=== PATIENT | male | born 1950 | race Caucasian/White ===

== ENCOUNTER 2022-10-20 09:31 | Inpatient (IN) ==
[2022-10-20] MEDS ORDERED: IOPAMIDOL 100 ML BOTTLE IV ONE (09:32)
[2022-10-20] MEDS ORDERED: ONDANSETRON 4 MG/2 ML VIAL IV ONE (09:57)
--- NOTE | 2022-10-20 10:06 | Emergency Department Note ---
HPI General Chief complaint: Abdominal Pain Stated complaint: Bloated Time Seen by Provider: 10/20/22 09:45 Source: patient Mode of arrival: wheelchair History of Present Illness HPI Narrative: Narrative: This 72-year-old male returns to the ED again with abdominal pain similar to what he had 2 days ago. He states he was on his way to water aerobics and started having left upper quadrant pain that increased in severity. He went ahead to water aerobics and had to leave the water as he was afraid he would throw up in the water. He states that the pain is gradually increasing it steady nothing is making it worse nothing is making it better he has had no vomiting he had a normal bowel movement today with no melena or hematochezia he states he has not passed gas in some time and he had no relief of his pain with the defecation. Reviewed case from 2 days ago when patient had nonspecific abdominal pain. Patient's also [id number] diabetic hypertensive and morbidly obese. Related Data Home Medications Medication Instructions Recorded Confirmed aspirin 81 mg tablet,delayed 81 mg PO QDAY 09/30/21 10/20/22 release (Adult Aspirin Regimen) famotidine 20 mg tablet 40 mg PO QDAY 09/30/21 10/20/22 losartan 50 mg tablet 50 mg PO QDAY 09/30/21 10/20/22 metformin 500 mg tablet 500 mg PO BID 09/30/21 10/20/22 polyethylene glycol 3350 17 17 g PO QDAY PRN Constipation 09/30/21 10/20/22 gram/dose oral powder simvastatin 20 mg tablet 20 mg PO QPM 09/30/21 10/20/22 Previous Rx's Medication Instructions Recorded fluticasone propionate 50 2 spray intranasal QDAY #16 grams 10/04/22 mcg/actuation nasal spray,suspension Allergies Allergy/AdvReac Type Severity Reaction Status Date / Time No Known Drug Allergies Allergy Verified 07/27/22 13:41 Review of Systems ROS ROS Narrative: Narrative: All systems ED: reviewed and negative except as stated. 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 (Acute) Morbid (severe) obesity due to excess calories (Chronic) Eczema (Chronic) Other sleep apnea (Chronic) GERD (gastroesophageal reflux disease) (Chronic) Hyperlipidemia, mixed (Chronic) Hypertension (Chronic) Type 2 diabetes mellitus (Chronic) Sleep apnea (Chronic) Medical History Eczema GERD (gastroesophageal reflux disease) Hyperlipidemia, mixed Hypersomnia Hypertension residential (current) use of aspirin Morbid (severe) obesity due to excess calories Other sleep apnea Rhinitis Right arm fracture (~1980) Sleep apnea Type 2 diabetes mellitus Surgical History History of total bilateral knee replacement (~2014) Family History Father Heart disease Sister Heart disease Thyroid disease Social History Smoking Status: Never smoker Alcohol Intake Frequency: 0-2 drinks per day Substance Use: does not use Exam Narrative Narrative: Narrative: General: Alert and oriented x3 answers questions cogently no acute distress. Skin: Well perfused and hydrated without exanthem. Abdomen: Decreased bowel sounds tender in the left upper quadrant as well as subxiphoid and right upper quadrant with no rebound CVA or psoas tenderness. Pulmonary: Clear to auscultation equal bilaterally without rales rhonchi or wheezes. Course Vital Signs Vital signs: Vital Signs Temperature 97.5 F 10/20/22 09:37 Pulse Rate 51 L 10/20/22 09:37 Respiratory Rate 18 10/20/22 09:37 Blood Pressure 147/80 10/20/22 09:37 Pulse Oximetry (%) 97 10/20/22 09:37 Oxygen Delivery Method Room Air 10/20/22 09:37 Temperature 98.1 F 10/21/22 07:16 Pulse Rate 63 10/21/22 07:16 Respiratory Rate 18 10/21/22 07:16 Blood Pressure 108/68 10/21/22 07:16 Pulse Oximetry (%) 94 10/21/22 07:16 Oxygen Delivery Method Room Air 10/21/22 07:16 MDM MDM Narrative Medical decision making narrative: Narrative: Patient's blood work was all essentially within normal limits. His CT showed a partial small bowel obstruction with a transition point on the right side of the abdomen. Described this to the patient and his and he is willing to be admitted with an NG tube inserted. Talk to Dr. Wolff who agreed to see the patient. Sepsis Sepsis Identified: No Lab Data 10/21/22 05:21 10/21/22 05:21 Labs: Lab Results 10/20/22 10/20/22 10/20/22 Range/Units 10:05 10:05 10:05 WBC 8.1 (4.5-11.0) K/mcL RBC 4.86 (4.63-6.08) M/mcL Hgb 13.5 L (13.7-17.5) g/dL Hct 41.9 (40.1-51.0) % POC Hct (41-55) MCV 86.2 (80.0-100.0) fL MCH 27.8 (26.0-34.0) pg MCHC 32.2 (31.0-36.0) g/dL RDW 13.6 (11.5-14.5) % Plt Count 246 (140-440) K/mcL MPV 10.0 (8.8-12.5) fL Immature Gran % (Auto) 0.5 (0.0-0.5) % Neut % (Auto) 64.9 (38.0-78.0) % Lymph % (Auto) 24.3 (15.5-49.0) % Labette % (Auto) 6.4 (1.0-12.0) % Eos % (Auto) 3.4 (0.0-7.0) % Baso % (Auto) 0.5 (0.0-2.0) % Lymph # (Auto) 1.98 (1.50-4.80) K/mcL Labette # (Auto) 0.52 (0.10-0.90) K/mcL Eos # (Auto) 0.28 (0.00-0.70) K/mcL Baso # (Auto) 0.04 (0.00-0.30) K/mcL Immature Gran # 0.04 (0.00-0.05) K/mcl Absolute Neutrophils 5.28 (1.80-8.00) K/mcL VBG Lactic Acid 0.8 (0.5-2.0) mmol/L POC Sodium (133-145) Sodium 139 (133-145) mmol/L POC Potassium (3.3-5.1) Potassium 4.1 (3.3-5.1) mmol/L POC Chloride (96-108) Chloride 105 (96-108) mmol/L Carbon Dioxide 24 (22-30) mmol/L POC Total CO2 (22-30) Anion Gap 10.0 (8.0-16.0) POC BUN (6-20) BUN 11 (8-23) mg/dL Creatinine 1.0 (0.7-1.2) mg/dL POC Creatinine (0.6-1.2) GFR Calculation 75 Glucose 102 (70-105) mg/dL POC Glucose (70-105) Hemoglobin A1c 5.7 (4.0-6.0) % Hgb Estim Average Glucose 117 mg/dL Calcium 8.8 (8.6-10.4) mg/dL POC WB Ioniz Calcium (1.16-1.32) Total Bilirubin 0.4 (0.1-1.0) mg/dL AST 21 (<40) U/L ALT 24 (<40) U/L Alkaline Phosphatase 72 (39-117) U/L Total Protein 7.1 (5.9-8.4) gm/dL Albumin 4.2 (3.2-5.2) gm/dL Globulin 2.9 (2.2-3.7) gm/dL Albumin/Globulin Ratio 1.4 (1.0-2.3) Urine Color Urine Appearance (Clear) Urine pH (5.0-9.0) Ur Specific Folcroft (1.000-1.035) Urine Protein (Negative) mg/dL Urine Glucose (UA) (Negative) mg/dL Urine Ketones (Negative) mg/dL Urine Occult Blood (Negative) mg/dL Urine Nitrate (Negative) Urine Bilirubin (Negative) mg/dL Urine Urobilinogen mg/dL Ur Leukocyte Esterase (Negative) /uL Urine RBC (0-3) /hpf Urine WBC (0-4) /hpf Ur Squamous Epith Cells (0-4) /hpf Urine Bacteria (0) /hpf Urine Mucus (None) /hpf Ur Culture Indicated? 10/20/22 10/20/22 Range/Units 10:10 10:48 WBC (4.5-11.0) K/mcL RBC (4.63-6.08) M/mcL Hgb (13.7-17.5) g/dL Hct (40.1-51.0) % POC Hct 42.0 (41-55) MCV (80.0-100.0) fL MCH (26.0-34.0) pg MCHC (31.0-36.0) g/dL RDW (11.5-14.5) % Plt Count (140-440) K/mcL MPV (8.8-12.5) fL Immature Gran % (Auto) (0.0-0.5) % Neut % (Auto) (38.0-78.0) % Lymph % (Auto) (15.5-49.0) % Labette % (Auto) (1.0-12.0) % Eos % (Auto) (0.0-7.0) % Baso % (Auto) (0.0-2.0) % Lymph # (Auto) (1.50-4.80) K/mcL Labette # (Auto) (0.10-0.90) K/mcL Eos # (Auto) (0.00-0.70) K/mcL Baso # (Auto) (0.00-0.30) K/mcL Immature Gran # (0.00-0.05) K/mcl Absolute Neutrophils (1.80-8.00) K/mcL VBG Lactic Acid (0.5-2.0) mmol/L POC Sodium 140 (133-145) Sodium (133-145) mmol/L POC Potassium 4.1 (3.3-5.1) Potassium (3.3-5.1) mmol/L POC Chloride 104 (96-108) Chloride (96-108) mmol/L Carbon Dioxide (22-30) mmol/L POC Total CO2 25.0 (22-30) Anion Gap (8.0-16.0) POC BUN 11 (6-20) BUN (8-23) mg/dL Creatinine (0.7-1.2) mg/dL POC Creatinine 1.1 (0.6-1.2) GFR Calculation Glucose (70-105) mg/dL POC Glucose 104 (70-105) Hemoglobin A1c (4.0-6.0) % Hgb Estim Average Glucose mg/dL Calcium (8.6-10.4) mg/dL POC WB Ioniz Calcium 1.19 (1.16-1.32) Total Bilirubin (0.1-1.0) mg/dL AST (<40) U/L ALT (<40) U/L Alkaline Phosphatase (39-117) U/L Total Protein (5.9-8.4) gm/dL Albumin (3.2-5.2) gm/dL Globulin (2.2-3.7) gm/dL Albumin/Globulin Ratio (1.0-2.3) Urine Color Yellow Urine Appearance Clear (Clear) Urine pH 5.0 (5.0-9.0) Ur Specific Folcroft 1.010 (1.000-1.035) Urine Protein Negative (Negative) mg/dL Urine Glucose (UA) Negative (Negative) mg/dL Urine Ketones Negative (Negative) mg/dL Urine Occult Blood 0.20 (Negative) mg/dL Urine Nitrate Negative (Negative) Urine Bilirubin Negative (Negative) mg/dL Urine Urobilinogen Negative mg/dL Ur Leukocyte Esterase Negative (Negative) /uL Urine RBC 2 (0-3) /hpf Urine WBC 1 (0-4) /hpf Ur Squamous Epith Cells < 1 (0-4) /hpf Urine Bacteria None (0) /hpf Urine Mucus Few A (None) /hpf Ur Culture Indicated? No Discharge Plan Patient/Caregiver Discharge Instructions Pt seen by FOREIGN CORRESPONDENT/PA only: No Clinical Impression: Partial obstruction of small intestine Patient Disposition: Xfer As Inpt ([facility]) Discharge Date/Time: 10/20/22 14:48
[2022-10-20 10:13] LABS: POC Calcium, Ionized 1.19 (1.16-1.32); POC Creatinine 1.1 (0.6-1.2); POC Potassium 4.1 (3.3-5.1)
[2022-10-20 10:56] LABS: Basophils # (Auto) 0.04 K/mcL (0.00-0.30); Basophils % (Auto) 0.5 % (0.0-2.0); Eosinophils # (Auto) 0.28 K/mcL (0.00-0.70); Eosinophils % (Auto) 3.4 % (0.0-7.0); Hematocrit 41.9 % (40.1-51.0); Hemoglobin 13.5 g/dL (13.7-17.5); Lymphocytes # (Auto) 1.98 K/mcL (1.50-4.80); Lymphocytes % (Auto) 24.3 % (15.5-49.0); Mean Cell Volume 86.2 fL (80.0-100.0); Mean Corpuscular HGB Conc 32.2 g/dL (31.0-36.0); Monocytes # (Auto) 0.52 K/mcL (0.10-0.90); Monocytes % (Auto) 6.4 % (1.0-12.0); Neutrophils % (Auto) 64.9 % (38.0-78.0); Platelet Count 246 K/mcL (140-440); RBC 4.86 M/mcL (4.63-6.08); Red Cell Distribution Width 13.6 % (11.5-14.5); WBC 8.1 K/mcL (4.5-11.0)
[2022-10-20 11:33] LABS: ALT/SGPT 24 U/L (<40); AST/SGOT 21 U/L (<40); Albumin 4.2 gm/dL (3.2-5.2); Albumin/Globulin Ratio 1.4 (1.0-2.3); Alkaline Phosphatase 72 U/L (39-117); Bilirubin,Total 0.4 mg/dL (0.1-1.0); Blood Urea Nitrogen 11 mg/dL (8-23); Calcium 8.8 mg/dL (8.6-10.4); Carbon Dioxide 24 mmol/L (22-30); Chloride 105 mmol/L (96-108); Globulin 2.9 gm/dL (2.2-3.7); Glomerular Filtration Rate 75; Glucose 102 mg/dL (70-105)
--- NOTE | 2022-10-20 11:34 | Cat Scan Report ---
INDICATION: pain COMPARISON: Previous CT scan dated 10/18/2022. Previous plain film examination dated 10/18/2022 TECHNIQUE: Axial images were obtained through the abdomen and pelvis. Sagittally and coronally reformatted images. 80 mL Isovue 370 injected intravenously. Oral contrast material was not administered FINDINGS: Lung bases:Negative. No pulmonary parenchymal nodule. No pleural fluid or pericardial fluid Liver:Negative. No focal intrahepatic mass. No focal abnormality. Liver contour is smooth. No evidence for cirrhosis Gallbladder, bilary:Multiple small dense gallstones in the dependent portion of the gallbladder. No pericholecystic fluid. No dilated bile ducts. Spleen:No splenomegaly. Normal enhancement of splenic and portal veins. Pancreas:No pancreatic mass. No peripancreatic abnormality Adrenal glands:Negative Kidneys,ureters,bladder:9 cm left lower pole renal cyst. No solid renal mass. No hydronephrosis. No obstructing or nonobstructing calculi No hydroureter. No ureteral calculus. No bladder stone. No detectable bladder mass. Gastrointestinal:Mild sigmoid diverticulosis. No evidence for diverticulitis. No detectable colonic mass. There is gas and fecal material within the colon. Abnormal small bowel. There is dilatation of the jejunum. Small bowel contains gas and fluid as well as some small bowel feces. Findings remain consistent with small bowel obstruction which is probably partial. Transition point in the right side of the abdomen. There is no closed loop obstruction. There is no detectable mass. Distal ileum is not distended. Terminal ileum appears normal Small hiatal hernia. Otherwise negative stomach and duodenum Appendix: The appendix is not well visualized. No distended appendix or evidence for acute appendicitis. Vascular:There is no abdominal aortic aneurysm. There is calcification at the origin of the celiac trunk and superior mesenteric artery. No stenosis or occlusion Lymphatic:No retroperitoneal or mesenteric adenopathy Mesentery, peritoneum: There is mild free intraperitoneal fluid. This is in the right lower quadrant. There is no intra-abdominal abscess Reproductive:No significant prostatic enlargement Musculoskeletal:Mild multilevel degenerative disc disease. No lumbar compression fracture. Sacrum and pelvis are negative No abdominal wall or inguinal hernia IMPRESSION: 1. Dilated jejunum with small bowel feces. Appearance remains consistent with partial mechanical small bowel obstruction. No significant interval change since 10/18/2022 2. Cholelithiasis 3. Small amount of free intraperitoneal fluid. No intra-abdominal abscess 4. Large right renal cyst, unchanged The exam was performed using radiation dose optimization techniques including, but not limited to, automated exposure control, adjustment of the mA and/or kV according to patient size and use of iterative reconstruction technique. Interpreted and Authenticated by: Jesus Bermeo 10/20/22
[2022-10-20 11:35] LABS: Appearance,Urine CLEAR (Clear); Bilirubin,Urine Negative (Negative); Color,Urine YELLOW; Culture Indicated,Urine No; Glucose,Urine (UA) Negative (Negative); Ketones,Urine Negative (Negative); Leukocyte Esterase,Urine Negative /uL (Negative); Mucus,Urine FEW /hpf; Nitrate,Urine Negative (Negative); Protein,Urine Negative (Negative); Urine RBC 2 /hpf (0-3); Urine Squamous Epithelial Cell < 1 /hpf (0-4); Urine WBC 1 /hpf (0-4); Urobilinogen,Urine Negative
--- NOTE | 2022-10-20 13:20 | XRay Report ---
INDICATION: NG tube placement TECHNIQUE: Supine abdomen. COMPARISON: Previous CT scan dated 10/20/2022 FINDINGS:There is an esophagogastric tube in the proximal stomach. Sidehole of the catheter is below the diaphragm There is dilated gas-filled small bowel consistent with mechanical small bowel obstruction IMPRESSION: Esophagogastric tube in the proximal stomach Interpreted and Authenticated by: Jesus Bermeo 10/20/22
[2022-10-20] MEDS ORDERED: ONDANSETRON 4 MG/2 ML VIAL IV PRN (13:53)
[2022-10-20] MEDS ORDERED: HYDROmorphone 0.5 MG/0.5 ML SYRINGE IV PRN (13:58)
[2022-10-20] MEDS: DEXTROSE 5%-1/2NS 1,000 ML IV SCH ×2 (15:27→23:39)
[2022-10-20] MEDS ORDERED: DEXTROSE 31 GM ORAL.SUSP PO PRN (15:52)
[2022-10-20] MEDS: 0.9 % SODIUM CHLORIDE 10 ML SYRINGE IV SCH ×2 (15:52→21:50)
[2022-10-20] MEDS ORDERED: DEXTROSE 50% 50 ML VIAL IV PRN (15:52)
[2022-10-20] MEDS: BENZOCAINE/MENTHOL 1 LOZENGE PO PRN ×3 (16:28→21:49)
--- NOTE | 2022-10-20 16:43 | General Surg History&Physical ---
HPI History of Present Illness Patient information: Note initiated : 10/20/22 at 4:36 pm Service Date, if different from initiated Date: [] Patient: Jesus Mackay a 72 y/o M admitted on 10/20/22 for Bloated. Chief Complaint: [] Chief complaint: abd pain History of present illness: Mr. Mackay is a 72 year old M who presents with nausea and emesis since Tuesday night, it has gradually gotten worse. He was seen in the ED 2 days ago, CT was read as cystitis with "prominent" loops of small bowel. He was sent home and represented today with continued pain, nausea and emesis. CT today read as partial small bowel obstruction. I was asked to see patient for evaluation. He denies prior h/o similar symptoms, denies prior abdominal surgery. 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 (Acute) Morbid (severe) obesity due to excess calories (Chronic) Eczema (Chronic) Other sleep apnea (Chronic) GERD (gastroesophageal reflux disease) (Chronic) Hyperlipidemia, mixed (Chronic) Hypertension (Chronic) Type 2 diabetes mellitus (Chronic) Sleep apnea (Chronic) Medical History Eczema GERD (gastroesophageal reflux disease) Hyperlipidemia, mixed Hypersomnia Hypertension custodial (current) use of aspirin Morbid (severe) obesity due to excess calories Other sleep apnea Rhinitis Right arm fracture (~1980) Sleep apnea Type 2 diabetes mellitus Surgical History History of total bilateral knee replacement (~2014) Family History Father Heart disease Sister Heart disease Thyroid disease Social History marital status: occupational status: retired physical activity: swimming frequency: 5-6 times per week smoking status: Never smoker alcohol intake frequency: 0-2 drinks per day substance use type: does not use MEDS/ALLERGIES Home Medications and Allergies Home Medications Medication Instructions Recorded Confirmed Type aspirin 81 mg tablet,delayed 81 mg PO QDAY 09/30/21 10/20/22 History release (Adult Aspirin Regimen) famotidine 20 mg tablet 40 mg PO QDAY 09/30/21 10/20/22 History losartan 50 mg tablet 50 mg PO QDAY 09/30/21 10/20/22 History metformin 500 mg tablet 500 mg PO BID 09/30/21 10/20/22 History polyethylene glycol 3350 17 17 g PO QDAY PRN Constipation 09/30/21 10/20/22 History gram/dose oral powder simvastatin 20 mg tablet 20 mg PO QPM 09/30/21 10/20/22 History fluticasone propionate 50 2 spray intranasal QDAY #16 grams 10/04/22 10/20/22 Rx mcg/actuation nasal spray,suspension Allergies Allergy/AdvReac Type Severity Reaction Status Date / Time No Known Drug Allergies Allergy Verified 07/27/22 13:41 Physical Examination Vital Signs Vital signs: Temp Pulse Resp BP Pulse Ox O2 Del Method 98.7 F 50 L 18 128/76 96 Room Air 10/20/22 15:58 10/20/22 15:58 10/20/22 15:58 10/20/22 15:58 10/20/22 15:58 10/20/22 15:58 General physical appearance General physical exam: well developed, well nourished and no distress Eyes Eye exam: PERRL and normal ocular movement ENT ENT exam: normal pinna, normal nares, normal mucosa, no hearing loss and no congestion Head Head exam IM: Present atraumatic and normocephalic Neck Neck exam: no masses, no bruits, trachea midline, no lymphadenopathy and no venous distension Cardiovascular Cardiovascular exam IM: Present normal rate and rhythm Respiratory Respiratory exam: normal expansion, normal respiratory effort, clear to percussion and clear to auscultation Abdomen Abdomen: Present soft, non tender and bowel sounds Hernia: Present none Genitourinary Genitourinary (Male): Present normal penis with no external lesions Rectum Rectum: Present normal sphincter tone, no hemorrhoids, no tenderness, no masses and no bleeding Integumentary Integumentary: Present no rash, no growths and no abnormal pigmentation Neurologic Neurologic: Present normal coordination and normal sensation Musculoskeletal Musculoskeletal: Present normal gait and normal posture Psychiatric Psychiatric: Present oriented to time, oriented to person, oriented to place, speech is normal and memory intact Results Labs 10/20/22 10:05 10/20/22 10:05 Labs: Abnormal lab results 10/20/22 10/20/22 Range/Units 10:05 10:48 Hgb 13.5 L (13.7-17.5) g/dL Urine Mucus Few A (None) /hpf Diabetes panel 10/20/22 Range/Units 10:05 Sodium 139 (133-145) mmol/L Potassium 4.1 (3.3-5.1) mmol/L Chloride 105 (96-108) mmol/L Carbon Dioxide 24 (22-30) mmol/L BUN 11 (8-23) mg/dL Creatinine 1.0 (0.7-1.2) mg/dL Glucose 102 (70-105) mg/dL Calcium 8.8 (8.6-10.4) mg/dL AST 21 (<40) U/L ALT 24 (<40) U/L Alkaline Phosphatase 72 (39-117) U/L Total Protein 7.1 (5.9-8.4) gm/dL Albumin 4.2 (3.2-5.2) gm/dL Calcium panel 10/20/22 Range/Units 10:05 Calcium 8.8 (8.6-10.4) mg/dL Albumin 4.2 (3.2-5.2) gm/dL Pituitary panel 10/20/22 Range/Units 10:05 Sodium 139 (133-145) mmol/L Potassium 4.1 (3.3-5.1) mmol/L Chloride 105 (96-108) mmol/L Carbon Dioxide 24 (22-30) mmol/L BUN 11 (8-23) mg/dL Creatinine 1.0 (0.7-1.2) mg/dL Glucose 102 (70-105) mg/dL Calcium 8.8 (8.6-10.4) mg/dL Adrenal panel 10/20/22 Range/Units 10:05 Sodium 139 (133-145) mmol/L Potassium 4.1 (3.3-5.1) mmol/L Chloride 105 (96-108) mmol/L Carbon Dioxide 24 (22-30) mmol/L BUN 11 (8-23) mg/dL Creatinine 1.0 (0.7-1.2) mg/dL Glucose 102 (70-105) mg/dL Calcium 8.8 (8.6-10.4) mg/dL Total Bilirubin 0.4 (0.1-1.0) mg/dL AST 21 (<40) U/L ALT 24 (<40) U/L Alkaline Phosphatase 72 (39-117) U/L Total Protein 7.1 (5.9-8.4) gm/dL Albumin 4.2 (3.2-5.2) gm/dL All other labs normal. Imaging CT scan - abdomen: image reviewed A/P Assessment and plan (1) Partial obstruction of small intestine: Plan: sbo Admit, NPO, NGT, ambulate Hospitalist to help with diabetes Status: Acute Time Spent With Patient Time: Total time spent is greater than 50% in coordination of care (as documented) at patient's floor/unit and/or counseling patient:
[2022-10-20] MEDS: INSULIN LISPRO 1 UNIT/0.01 ML UNIT SQ SCH ×2 (17:02→21:50)
[2022-10-20] MEDS ORDERED: BENZOCAINE 20% 1 SPRAY EACH TOPICAL PRN (17:27)
[2022-10-21] MEDS: BENZOCAINE/MENTHOL 1 LOZENGE PO PRN ×3 (00:06→10:04)
[2022-10-21 00:11] LABS: Hemoglobin A1C 5.7 % Hgb (4.0-6.0)
[2022-10-21] MEDS: 0.9 % SODIUM CHLORIDE 10 ML SYRINGE IV SCH ×4 (05:41→21:18)
[2022-10-21 06:17] LABS: Basophils # (Auto) 0.06 K/mcL (0.00-0.30); Basophils % (Auto) 0.7 % (0.0-2.0); Eosinophils # (Auto) 0.28 K/mcL (0.00-0.70); Eosinophils % (Auto) 3.2 % (0.0-7.0); Hematocrit 38.2 % (40.1-51.0); Hemoglobin 12.4 g/dL (13.7-17.5); Lymphocytes # (Auto) 2.48 K/mcL (1.50-4.80); Lymphocytes % (Auto) 28.1 % (15.5-49.0); Mean Cell Volume 85.7 fL (80.0-100.0); Mean Corpuscular HGB Conc 32.5 g/dL (31.0-36.0); Mean Platelet Volume 10.1 fL (8.8-12.5); Monocytes % (Auto) 7.9 % (1.0-12.0); Neutrophils % (Auto) 59.4 % (38.0-78.0); Platelet Count 239 K/mcL (140-440); RBC 4.46 M/mcL (4.63-6.08); Red Cell Distribution Width 13.7 % (11.5-14.5); WBC 8.8 K/mcL (4.5-11.0)
[2022-10-21 06:58] LABS: Blood Urea Nitrogen 8 mg/dL (8-23); Calcium 8.7 mg/dL (8.6-10.4); Carbon Dioxide 25 mmol/L (22-30); Chloride 104 mmol/L (96-108); Glomerular Filtration Rate 75; Glucose 123 mg/dL (70-105)
[2022-10-21] MEDS: INSULIN LISPRO 1 UNIT/0.01 ML UNIT SQ SCH ×4 (08:11→20:36)
[2022-10-21] MEDS: DEXTROSE 5%-1/2NS 1,000 ML IV SCH ×3 (10:16→20:37)
--- NOTE | 2022-10-21 11:37 | XRay Report ---
INDICATION: Partial small bowel obstruction TECHNIQUE: Dilute water-soluble contrast material was placed through the esophagogastric tube in the stomach COMPARISON: Previous plain film examination dated 10/20/2022. Previous CT scan dated 10/20/2022 FINDINGS: Barium passes through the small bowel and is in colon at 2 hours postingestion. There is no transition point. Findings are consistent with resolution of mechanical small bowel obstruction. IMPRESSION: 1. Barium within the colon at 2 hours postingestion 2. Findings consistent with resolution of small bowel obstruction Interpreted and Authenticated by: Jesus Bermeo 10/21/22
[2022-10-21] MEDS ORDERED: ACETAMINOPHEN 325 MG TABLET PO PRN (15:34)
--- NOTE | 2022-10-21 15:34 | General Surgery Progress Note ---
SUBJECTIVE Subjective Patient information: Note initiated : 10/21/22 at 3:33 pm Service Date, if different from initiated Date: [] Patient: Jesus Mackay 72 y/o M admitted on 10/20/22 for Bloated. Chief Complaint: [] Interval history: Status post small bowel follow-through today, no evidence of partial small bowel obstruction on small bowel follow-through. Patient is now passing flatus and having bowel movements. Patient has no abdominal pain. Constitutional Vitals: Vital Signs Temp Pulse Resp BP Pulse Ox O2 Del Method 97.4 F 59 L 18 131/70 93 Room Air 10/21/22 12:00 10/21/22 12:00 10/21/22 12:00 10/21/22 12:00 10/21/22 12:00 10/21/22 12:00 Period Temp Pulse Resp BP Sys/Samson Pulse Ox O2 Del Method O2 Flow Rate Last 24 Hr 97.4 F-98.7 F 50-63 16-18 108-131/58-76 93-96 Room Air-Room Air Intake and Output 10/21/22 10/21/22 10/21/22 03:59 11:59 19:59 Intake Total 1000 1000 Output Total 910 Balance 90 1000 Weight 277 lb 6.4 oz Patient Weight 10/22/22 03:59 Weight 277 lb 6.4 oz Intake & Output: Intake & Output 10/21/22 10/21/22 10/21/22 03:59 11:59 19:59 Intake Total 1000 1000 Output Total 910 Balance 90 1000 Weight 277 lb 6.4 oz Intake: IV 1000 1000 Dextrose 5%-1/2Ns IV Solution 1 1000 1000 ,000 ml @ 125 mls/hr IV [facility] Rx#:[id number] Oral 0 Output: Gastric Drainage 260 Right Nare NG/OG 260 Void Amount 650 Other: Urine Appearance Clear Urine Color Yellow # Voids 1 General appearance: cooperative and no acute distress GI/Abdominal GI/Abdominal exam: Present normal bowel sounds and soft; Absent distended or tenderness A/P Assessment and plan (1) Partial obstruction of small intestine: Plan: Resolving partial small bowel obstruction. DC NG tube. Clear liquid diet. Continue ambulation. Status: Acute Time Spent With Patient Time: Total time spent is greater than 50% in coordination of care (as documented) at patient's floor/unit and/or counseling patient:
[2022-10-22] MEDS: DEXTROSE 5%-1/2NS 1,000 ML IV SCH (05:43)
[2022-10-22] MEDS: 0.9 % SODIUM CHLORIDE 10 ML SYRINGE IV SCH (05:44)
--- NOTE | 2022-10-22 08:35 | Discharge Summary ---
Discharge Provider Provider IMPORTANT FOLLOW-UP INFORMATION FOR PCP: Patient information: Note initiated : 10/22/22 at 8:35 am Service Date, if different from initiated Date: [] Patient: Jesus Mackay 72 y/o M admitted on 10/20/22 for Bloated. Chief Complaint: [] Date of admission: 10/20/22 14:48 Discharge date: 10/22/22 Primary care physician: Bruce Granda DO Consults: 10/20/22 Consult to Physician [CONS] Stat Comment: Consulting Provider: Maximo Wolff Reason For Exam: Physician to Consult 10/20/22 14:00 Consult to Physician [CONS] Routine Comment: Please assist with diabetic managment. Thank you Consulting Provider: Satish Kam Reason For Exam: Physician to Consult COURSE Hospital Course Hospital course: Patient admitted with questionable partial small bowel obstruction on CT scan, was made n.p.o. with NG tube, small bowel follow-through the following day with no evidence of small bowel obstruction. Patient was unable to advance diet, tolerated clear liquid diet with return of bowel function. Discharge diagnosis: Resolved partial small bowel obstruction Time Spent with Patient Time attestation: Total time spent providing and/or coordinating discharge services: Time spent: Less than 30 minutes Physical Examination Vital Signs Vital signs: Temp Pulse Resp BP Pulse Ox O2 Del Method 98.6 F 52 L 18 122/76 93 Room Air 10/22/22 04:00 10/22/22 04:00 10/22/22 04:00 10/22/22 04:00 10/22/22 04:00 10/22/22 04:00 Discharge Plan Patient/Caregiver Discharge Instructions Activity: increase activity as tolerated Diet: Regular Diet Prescriptions: Continued fluticasone propionate 50 mcg/actuation spray,suspension 2 spray intranasal QDAY Qty: 16 3RF metformin 500 mg tablet 500 mg PO BID simvastatin 20 mg tablet 20 mg PO QPM losartan 50 mg tablet 50 mg PO QDAY polyethylene glycol 3350 17 gram/dose powder 17 g PO QDAY PRN (Reason: Constipation) aspirin [Adult Aspirin Regimen] 81 mg tablet,delayed release (DR/EC) 81 mg PO QDAY famotidine 20 mg tablet 40 mg PO QDAY Follow Up Plan Follow up with: Bruce Granda DO [Primary Care Provider] - Patient Disposition: Home, Self-Care Overall status at discharge: patient is back to baseline Discharge Orders: Discharge Order (Routine); Ordered 10/22/22 Ordered By: Maximo Wolff Pending Pending Pending: Resuscitation Status Resuscitate (Full Code) Diet Regular Diet Start TueOct 22 805 Acetaminophen (Acetaminophen 325 Mg Tablet) 650 mg PO Q4-6HP PRN; Protocol PRN Reason: Per Pain Protocol Last Admin: 10/21/22 17:12 Dose: 650 mg Documented By: [email or web address] Benzocaine (Benzocaine 20% 1 [place] Each) 1 spray TOPICAL ONCE PRN PRN Reason: Sore Throat Last Admin: 10/20/22 17:57 Dose: 1 spray Documented By: GHULAM Diagnostic Test (Pha) (Accu-Chek 1 Each Strip) 1 each FS ACHS [facility] Last Admin: 10/21/22 20:34 Dose: 1 each Documented By: Admin: 10/21/22 18:05 Dose: 1 each Documented By: Admin: 10/21/22 13:28 Dose: 1 each Documented By: Admin: 10/21/22 08:11 Dose: 1 each Documented By: Admin: 10/20/22 21:50 Dose: 1 each Documented By: Admin: 10/20/22 17:02 Dose: 1 each Documented By: GHULAM Dextrose/Sodium Chloride (Dextrose 5%-1/2ns Iv Solution) 1,000 mls @ 125 mls/hr IV .Q8H [facility] Last Admin: 10/22/22 05:43 Dose: 125 mls/hr Documented By: Infusion: 10/22/22 04:37 Dose: 0 mls/hr Documented By: Admin: 10/21/22 20:37 Dose: 125 mls/hr Documented By: Infusion: 10/21/22 18:16 Dose: 125 mls/hr Documented By: Admin: 10/21/22 13:29 Dose: Not Given Documented By: Admin: 10/21/22 10:16 Dose: 125 mls/hr Documented By: Infusion: 10/21/22 08:11 Dose: 0 mls/hr Documented By: Admin: 10/20/22 23:39 Dose: 125 mls/hr Documented By: Infusion: 10/20/22 23:27 Dose: 125 mls/hr Documented By: Admin: 10/20/22 15:27 Dose: 125 mls/hr Documented By: GHULAM Insulin Human Lispro (Insulin Lispro 1 Unit/0.01 Ml Unit) 0 unit SQ ACHS JULIANNE; Protocol Last Admin: 10/21/22 20:36 Dose: Not Given Documented By: Admin: 10/21/22 18:05 Dose: Not Given Documented By: Admin: 10/21/22 13:28 Dose: Not Given Documented By: Admin: 10/21/22 08:11 Dose: Not Given Documented By: Admin: 10/20/22 21:50 Dose: Not Given Documented By: Admin: 10/20/22 17:02 Dose: Not Given Documented By: GHULAM Sodium Chloride (0.9 % Sodium Chloride 10 Ml Syringe) 10 ml IV Q8 [facility] Last Admin: 10/22/22 05:44 Dose: Not Given Documented By: Admin: 10/21/22 21:18 Dose: Not Given Documented By: Admin: 10/21/22 13:29 Dose: Not Given Documented By: Admin: 10/21/22 05:41 Dose: Not Given Documented By: Admin: 10/20/22 21:50 Dose: Not Given Documented By: Admin: 10/20/22 15:52 Dose: Not Given Documented By: GHULAM Throat Lozenges (Benzocaine/Menthol 1 Lozenge) 1 lozenge PO PRN PRN PRN Reason: Sore Throat Last Admin: 10/21/22 10:04 Dose: 1 lozenge Documented By: Admin: 10/21/22 03:34 Dose: 1 lozenge Documented By: Admin: 10/21/22 00:06 Dose: 1 lozenge Documented By: Admin: 10/20/22 21:49 Dose: 1 lozenge Documented By: Admin: 10/20/22 19:10 Dose: 1 lozenge Documented By: Admin: 10/20/22 16:28 Dose: 1 lozenge Documented By: GHULAM Shift Summary 10/22/22 05:15 Shift Summary by Emperatriz Desouza Assumed Pt care @ 1830. Pt is alert and oriented x 4 and in no apparent signs and symptoms of distress. Pt denies pain, Call light within reach and whiteboard updated. Pt on RA with saturations in the 90's. Pt PIV on RAC is patent infusing D5 1/2NS @ 125 ml/hr. Pt tolerated ambulation in hallway with steady gait and standby due to IV connection. Pt vitals stable, urine output greater than 30 ml/hr with one episode of loose BM. No acute events all night. Initialized on 10/22/22 05:15 - END OF NOTE
== END 2022-10-22 09:50 | disposition home or self-care (01) | DRG 389 ==
LOC: ED 09:31 → MEDSUR 14:48
PROVIDERS: ADMIT Surgery; ATTEND Surgery